=== PATIENT | female | born 1945 | race Caucasian/White ===

== ENCOUNTER → 2020-01-06 | Outpatient (CLI) | payer BC | END | disposition EMS.NT | LOC: EMS 21:29 | PROVIDERS: ATTEND Surgery | DX: M25.511 Pain in right shoulder (principal); W01.0XXA Fall on same level from slipping, tripping and stumbling without subsequent striking against object, initial encounter; Y92.009 Unspecified place in unspecified non-institutional (private) residence as the place of occurrence of the external cause ==

== ENCOUNTER 2020-03-01 16:15 | Outpatient (CLI) | payer BC ==
--- NOTE | 2020-03-01 17:20 | Ultrasound Report ---
PROCEDURE: Retroperitoneal INDICATIONS: RENAL INSUFFICIENCY TECHNIQUE: Real-time scanning was performed of the retroperitoneal organs, with image documentation. COMPARISON: None. FINDINGS: Kidneys: Kidneys are normal in size. Right kidney measures 11.3 cm long; left kidney measures 10.1 cm long. Right renal cortical thickness is 1.2 cm; left renal cortical thickness is 1.4 cm. No mallory d masses, hydronephrosis, or nephrolithiasis. Pancreas: Visualized portions of the pancreas are sonographically normal. Aorta: Visualized aorta is normal in caliber at 3 cm or less. Iliac arteries: Proximal common iliac arteries are normal in caliber at 2.5 cm or less. IVC: Intrahepatic inferior vena cava is patent. Miscellaneous: No free abdominal fluid. 232 cc prevoid bladder volume, 32 cc postvoid residual. Armen ateral ureteral jets are seen. IMPRESSION: No hydronephrosis or nephrolithiasis found. Normal bladder function, no sonographically visible sourc e of renal insufficiency is found. Reviewed by: Jose Denny MD on 03/01/2020 5:19 PM PDT Approved by: Jose Denny MD on 03/01/2020 5:19 PM PDT Station ID: [id number]
== END 2020-03-01 16:16 | disposition home or self-care (01) ==
LOC: DI 16:15
PROVIDERS: ATTEND Family Medicine
DX: N18.9 Chronic kidney disease, unspecified (principal)
CPT/HCPCS: 76770

== ENCOUNTER 2021-07-13 14:57 | Emergency (ER) | payer BC ==
--- NOTE | 2021-07-13 15:11 | ED Physician Documentation ---
PD HPI HEAD INJURY - Stated complaint Stated Complaint: HEAD PAIN - Chief complaint Chief Complaint: Neuro - History obtained from History obtained from: Patient - Additional information Additional information: 2 nights ago her dog knocked her forward and she hit her head on the floor. She has persistent headache, 8 out of 10 at times. She feels slightly confused with this. It has improved somewhat. Mild lightheadedness and nausea and slight confusion with this. She went to urgent care and was referred here for consideration for cranial imaging. She is not anticoagulated. Walk-in clinic did call me prior to arrival. 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 - Present Medications Home Medications: Ambulatory Orders Medication Instructions Recorded Confirmed No Known Home Medications 12/19/12 12/19/12 - Allergies Allergies/Adverse Reactions: Allergies Allergy/AdvReac Type Severity Reaction Status Date / Time No Known Drug Allergies Allergy Verified 07/13/21 15:07 - Social History Does the pt smoke?: No Smoking Status: Never smoker Does the pt drink ETOH?: No Does the pt have substance abuse?: No - Immunizations Immunizations are current?: No Immunizations: TDAP >10years/unknown - POLST Patient has POLST: No PD ED PE NORMAL - Vitals Vital signs reviewed: Yes - General General: Alert and oriented X 3, No acute distress - HEENT HEENT: PERRL, EOMI - Neck Neck: Supple, no meningeal sign, No bony TTP - Back Back: No CVA TTP, No spinal TTP - Derm Derm: Normal color, Warm and dry - Extremities Extremities: Other (Scrape on the anterior right knee without deformity, passive range of motion is painless and no bony tenderness.) - Neuro Neuro: Alert and oriented X 3, Normal speech Eye Opening: Spontaneous Motor: Obeys Commands Verbal: Oriented GCS Score: 15 - Psych Psych: Normal mood, Normal affect Results - Vitals Vitals: Vital Signs - 24 hr 07/13/21 07/13/21 07/13/21 15:04 15:25 16:28 Temperature 36.4 C L Heart Rate 79 72 77 Respiratory 16 18 20 Rate Blood Pressure 131/101 H 195/91 H 177/79 H O2 Saturation 98 98 98 Oxygen O2 Source Room air PD MEDICAL DECISION MAKING - ED course ED course: 75-year-old woman with postconcussive symptoms. Given the age and the headache CT scanning was done without pertinent positive findings. Departure - Departure Disposition: 01 Home, Self Care Clinical Impression: Concussion Qualifiers: Encounter type: initial encounter Loss of consciousness presence/duration: without LOC Qualified Code(s): S06.0X0A - Concussion without loss of consciousness, initial encounter Condition: Good Record reviewed to determine appropriate education?: Yes Instructions: ED Concussion Comments: Take it easy, do not do anything where you would be at risk for repeat head injury, return for new or worsening symptoms. Your blood pressure was elevated today on check into the emergency department. This does not mean that you have hypertension, it is a common phenomenon to come to the emergency department and have elevated blood pressure. I recommend that you see your primary care physician within the week to have it rechecked when you are feeling better. Discharge Date/Time: 07/13/21 16:29
[2021-07-13] MEDS ORDERED: ACETAMINOPHEN 325 MG TABLET PO STA (15:43)
--- NOTE | 2021-07-13 16:13 | CT Report ---
PROCEDURE: HEAD WO INDICATIONS: head injury TECHNIQUE: Noncontrast 4.5 mm thick angled axial sections acquired from the foramen magnum to the vertex. For r adiation dose reduction, the following was used: automated exposure control, adjustment of mA and/or kV according to patient size. COMPARISON: None. FINDINGS: Image quality: Excellent. CSF spaces: Basal cisterns are patent. No extra-axial fluid collections. Ventricles are normal in size and shape. Brain: No midline shift. No intracranial masses or hemorrhage. No mass effect. Silvestre-white matter i nterface is normal. There cerebral volume loss for age with resultant ventricular and sulcal prominen ce. There are periventricular and deep white matter chronic small vessel ischemic changes. Atheroscle rotic calcifications are noted in the intracranial segments of the bilateral internal carotid arterie s. There are also punctate densities involving both basal ganglia likely related to senescent calcifi cations. Skull and face: Calvarium and visualized facial bones are intact, without suspicious lesions. Sinuses: Visualized sinuses and mastoids are clear. IMPRESSION: CT head without acute intracranial abnormalities. No acute calvarial fractures. Bilateral basal ganglial grouped punctate densities likely representing senescent calcifications. Oth erwise, no evidence for acute intracranial hemorrhage identified. Age-related senescent changes and sequela of chronic small vessel ischemic disease. Reviewed by: Edgar Perez MD on 07/13/2021 3:12 PM [facility] Approved by: Edgar Perez MD on 07/13/2021 3:12 PM [facility] Station ID: [id number]
[2021-07-13 16:29] VITALS: BP 177/79
== END 2021-07-13 16:29 | disposition home or self-care (01) ==
LOC: ED 14:57
DX: S06.0X0A Concussion without loss of consciousness, initial encounter (principal); W01.0XXA Fall on same level from slipping, tripping and stumbling without subsequent striking against object, initial encounter
CPT/HCPCS: 70450; 99281; 99284; A9270

== ENCOUNTER 2022-08-21 08:00 | Outpatient (CLI) | payer BC ==
--- NOTE | 2022-08-21 09:36 | XRAY Report ---
PROCEDURE: Shoulder 3 View LT INDICATIONS: TENDONITIS OF LEFT BICEPS TENDON TECHNIQUE: 3 views of the shoulder were acquired. COMPARISON: None. FINDINGS: Bones: No fractures or dislocations. No suspicious bony lesions. No significant degenerative encarnacion es. Visualized ribs appear intact. Soft tissues: No suspicious soft tissue calcifications. IMPRESSION: No significant osseous abnormality. If there is persistent pain, consider MRI. Reviewed by: Leon Berrios on 08/21/2022 9:35 AM PDT Approved by: Leon Berrios on 08/21/2022 9:35 AM PDT Station ID: [id number]
== END 2022-08-21 23:59 | disposition home or self-care (01) ==
LOC: DI.S 08:00
PROVIDERS: ATTEND Emergency Medicine
DX: M75.22 Bicipital tendinitis, left shoulder (principal)

== ENCOUNTER 2023-09-08 08:00 | Outpatient (CLI) | payer MEDICARE, OTHER | END 2023-09-08 23:59 | disposition home or self-care (01) | LOC: LAB.S 08:00 | PROVIDERS: ATTEND Nurse Practitioner | DX: L72.3 Sebaceous cyst (principal) | CPT/HCPCS: 87070; 87205 ==

== ENCOUNTER 2023-09-11 11:59 | Emergency (ER) | payer MEDICARE, OTHER ==
[2023-09-11 12:55] LABS: BASOPHILS # (AUTO) 0.1 10^3/uL (0.0-0.1); BASOPHILS % (AUTO) 0.9 %; EOSINOPHILS # (AUTO) 0.2 10^3/uL (0.0-0.7); EOSINOPHILS % (AUTO) 4.2 %; HCT - HEMATOCRIT 42.3 % (37.0-47.0); HGB - HEMOGLOBIN 13.4 g/dL (12.0-16.0); LYMPHOCYTES # (AUTO) 1.1 10^3/uL (1.5-3.5); LYMPHOCYTES % (AUTO) 19.2 %; MEAN CORPUSCULAR HEMOGLOBIN 29.6 pg (27.0-31.0); MEAN CORPUSCULAR HGB CONC 31.7 g/dL (32.0-36.0); MEAN CORPUSCULAR VOLUME 93.4 fL (81.0-99.0); MEAN PLATELET VOLUME 10.8 fL (7.9-10.8); MONOCYTES # (AUTO) 0.5 10^3/uL (0.0-1.0); MONOCYTES % (AUTO) 8.9 %; NEUTROPHILS # (AUTO) 3.8 10^3/uL (1.5-6.6); NEUTROPHILS % (AUTO) 66.5 %; PLT - PLATELET COUNT 214 10^3/uL (130-450); RED BLOOD COUNT 4.53 10^6/uL (4.20-5.40); RED CELL DISTRIBUTION WIDTH 13.2 % (12.0-15.0); WHITE BLOOD COUNT 5.7 x10^3/uL (4.8-10.8)
[2023-09-11 13:09] LABS: ALBUMIN 4.2 g/dL (3.2-5.5); ALBUMIN/GLOBULIN RATIO 1.4 (1.0-2.2); BILIRUBIN,TOTAL 0.3 mg/dL (0.2-1.0); CALCIUM 9.9 mg/dL (8.5-10.3); CREATININE 1.3 mg/dL (0.6-1.3); POTASSIUM 4.2 mmol/L (3.5-4.5); TOTAL PROTEIN 7.1 g/dL (6.4-8.9)
[2023-09-11 13:36] VITALS: BP 189/86; O2SAT 98
--- NOTE | 2023-09-11 13:54 | CT Report ---
PROCEDURE: Head WO INDICATIONS: head injury, blurred vision TECHNIQUE: Noncontrast 4.5 mm thick angled axial sections acquired from the foramen magnum to the vertex. For r adiation dose reduction, the following was used: automated exposure control, adjustment of mA and/or kV according to patient size. COMPARISON: 07/13/2021 FINDINGS: Image quality: Excellent. CSF spaces: Basal cisterns are patent. No extra-axial fluid collections. Ventricles are normal in size and shape. Brain: No midline shift. No intracranial masses or hemorrhage. Silvestre-white matter interface is norm al. Skull and face: Calvarium and visualized facial bones are intact, without suspicious lesions. Sinuses: Visualized sinuses and mastoids are clear. IMPRESSION: No acute intracranial pathology. Reviewed by: Luis Stinson MD on 09/11/2023 1:53 PM PDT Approved by: Luis Stinson MD on 09/11/2023 1:53 PM PDT Station ID: [id number]
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
== END 2023-09-11 14:16 | disposition home or self-care (01) ==
LOC: ED 11:59
DX: H53.8 Other visual disturbances (principal); S09.90XA Unspecified injury of head, initial encounter; W22.09XA Striking against other stationary object, initial encounter; Y93.K9 Activity, other involving animal care; Y92.71 Barn as the place of occurrence of the external cause; V43.52XA Car driver injured in collision with other type car in traffic accident, initial encounter; Y93.89 Activity, other specified; Y92.410 Unspecified street and highway as the place of occurrence of the external cause
CPT/HCPCS: 36415; 80053; 85025; 99283; 99284